=== PATIENT | female | born 1935 | race Caucasian/White ===

== ENCOUNTER 2018-10-13 09:01 | Outpatient (CLI) | payer OTHER | END 2018-10-13 09:07 | disposition home or self-care (01) | LOC: RX STUDY 09:01 | DX: R10.13 Epigastric pain (principal) ==

== ENCOUNTER → 2019-01-09 | Outpatient (CLI) | payer OTHER | END | disposition home or self-care (01) | LOC: SONOGRAMA 13:04 → EDSEX 13:04 | DX: R31.1 Benign essential microscopic hematuria (principal); D64.89 Other specified anemias; N28.1 Cyst of kidney, acquired; C61 Malignant neoplasm of prostate ==

== ENCOUNTER 2019-06-04 14:14 | Outpatient (CLI) | payer OTHER | END 2019-06-04 14:22 | disposition home or self-care (01) | LOC: RAD 14:14 | DX: R06.09 Other forms of dyspnea (principal); R07.89 Other chest pain ==

== ENCOUNTER 2020-12-05 09:19 | Outpatient (CLI) | payer OTHER | END 2020-12-05 09:28 | disposition home or self-care (01) | LOC: SONOGRAMA 09:19 | PROVIDERS: ATTEND Surgery | DX: Q61.02 Congenital multiple renal cysts (principal); K80.80 Other cholelithiasis without obstruction ==

== ENCOUNTER 2021-09-14 11:18 | Outpatient (CLI) | payer OTHER | END 2021-09-14 11:21 | disposition home or self-care (01) | LOC: NUCLEAR 11:18 | DX: I65.23 Occlusion and stenosis of bilateral carotid arteries (principal) ==

== ENCOUNTER 2021-09-28 11:15 | Outpatient (CLI) | payer OTHER | END 2021-09-28 11:25 | disposition home or self-care (01) | LOC: SONOGRAMA 11:15 | PROVIDERS: ATTEND Internal Medicine Pulmonary Disease | DX: R06.02 Shortness of breath (principal); Q61.01 Congenital single renal cyst ==

== ENCOUNTER 2021-12-22 13:42 | Outpatient (CLI) | payer OTHER | END 2021-12-22 13:44 | disposition home or self-care (01) | LOC: RAD 13:42 | PROVIDERS: ATTEND Internal Medicine Pulmonary Disease | DX: R06.02 Shortness of breath (principal) ==